=== PATIENT | female | born 1985 | race Caucasian/White ===

== ENCOUNTER → 2016-07-11 | Outpatient (CLI) | payer OTHER, MEDICAID | LOC: HPND 08:16 | PROVIDERS: ATTEND Obstetrics & Gynecology | DX: O99.322 Drug use complicating pregnancy, second trimester (principal); G35 Multiple sclerosis | CPT/HCPCS: 76811 ==

== ENCOUNTER → 2016-08-23 | Outpatient (CLI) | payer MEDICAID | LOC: HPND 09:43 | PROVIDERS: ATTEND Obstetrics & Gynecology | DX: O35.8XX0 Maternal care for other (suspected) fetal abnormality and damage, not applicable or unspecified (principal); O99.322 Drug use complicating pregnancy, second trimester; O43.192 Other malformation of placenta, second trimester; Z3A.22 22 weeks gestation of pregnancy | CPT/HCPCS: 76816 ==

== ENCOUNTER 2017-07-30 08:04 | Observation (INO) | payer OTHER, MEDICAID ==
[~2017-07-30] VITALS: Ht 165.1 cm; Wt 70.3 kg
[~2017-07-30 08:04] MED LIST: ALPR.5 PO; CYCL10TA PO
[2017-07-30] MEDS ORDERED: SODIUM CHLORID 0.9% 500 ML IV PRN (08:45)
[2017-07-30] MEDS ORDERED: POVIDONE IODINE 5% (ANTISEPSIS KIT) 4 APPLICATIONS EACH NARE PRN (08:45)
[2017-07-30] MEDS ORDERED: CHLORHEXIDINE GLUCONATE 2 % 1 PACK (2 CLOTHS) TOPICAL PRN (08:45)
[2017-07-30] MEDS ORDERED: ceFAZolin 2 GM PREMIX 50 ML IV SCH (08:45)
[2017-07-30] MEDS ORDERED: METOPROLOL TARTRATE 25 MG TAB PO PRN (08:45)
[2017-07-30] MEDS ORDERED: LACTATED RINGER'S 1000 ML IV PRN (08:45)
[2017-07-30] MEDS ORDERED: ACETAMINOPHEN 1000 MG/100 ML 100 ML IV SCH (08:45)
[2017-07-30] MEDS ORDERED: MIDAZOLAM HCL 2 MG/2 ML VIAL ONE ×2 (10:15→15:46)
[2017-07-30] MEDS ORDERED: APREPITANT 40 MG CAP ONE (10:15)
[2017-07-30] MEDS ORDERED: FAMOTIDINE 20 MG/2 ML VIAL ONE ×2 (10:16→10:31)
[2017-07-30] MEDS ORDERED: BUPIVACAINE LIPOSOME PF 1.3% 20 ML VIAL ONE ×2 (10:38→13:56)
[2017-07-30] MEDS ORDERED: APREPITANT 40 MG CAP PO ONE (11:30)
[2017-07-30] MEDS ORDERED: MIDAZOLAM HCL 2 MG/2 ML VIAL IV ONE (11:30)
[2017-07-30] MEDS ORDERED: FAMOTIDINE 20 MG/2 ML VIAL IV ONE (11:30)
[2017-07-30] MEDS ORDERED: ACETAMINOPHEN 1000 MG/100 ML 0 ML IV ONE (11:53)
[2017-07-30] MEDS ORDERED: BUPIVACAINE/EPINEPHRINE 0.25% 50 ML VIAL ONE (11:59)
[2017-07-30] MEDS ORDERED: SODIUM CHLORIDE 0.9% 20 ML VIAL ONE (15:04)
--- NOTE | 2017-07-30 15:27 | PD.OP ---
cc: Luke Carranza MD Operative Report Date of Surgery: Jul 30, 2017 Preoperative Diagnosis: (1) Ventral incisional hernia (2) Umbilical hernia Postoperative Diagnosis: (1) Ventral incisional hernia (2) Umbilical hernia Procedure: Robot-assisted repair of ventral incisional hernia with mesh and primary repair of umbilical hernia Anesthesia: General Surgeon: Luke Carranza Table Lever Operator(s): Samantha LEMON Operation and Findings: EBL: 10 cc Operative findings: Patient had a fairly large incisional hernia at the site of the Pfannenstiel incision. Fascial defect approximately 6 x 6 cm. The rectus muscle was still in the midline on the left. Umbilical hernia approximately 1 cm closed primarily intracorporeally. Procedure in detail: The patient was taken to the operating room placed in supine position. General endotracheal anesthesia was induced. The abdomen is prepped and draped in usual sterile fashion and surgical timeout was performed to verify correct patient procedure and site. Appropriate preoperative antibiotics were administered. Local anesthetic was injected in the skin and subcutaneous tissue in the left upper quadrant and an 8 mm incision created. The Optiview trocar was used to directly enter the abdomen with the laparoscope in place. The abdomen was insufflated to 15 mmHg of CO2 gas which the patient tolerated well. 12 mm trocar was placed in the epigastrium and another 8 mm robotic trocar in the right upper quadrant. The left upper abdominal Optiview trocar was changed to the 8 mm robotic trocar. The patient was placed in mild Trendelenburg position. At this point, the da Santhosh robot was docked with the Prograsp and kamron in arm 1 and 2. Attention was turned to the lower abdomen. The hernia defect was obvious and measures approximately 6 x 6 cm. The left rectus muscle remain in the midline, however, the fascia was not in the midline. The hernia sac was reduced. The fascia was closed with #[address] 6 x 10" mesh was cut to approximately 10 x 15 cm. The mesh was oriented vertically and sutured in place inferiorly at the pubis and around the edge of the mesh using strata fix 3-0 PDS. There is wide coverage of the defect. Next the umbilical hernia was identified and was proximally 1 cm in diameter. The preperitoneal fatty tissue in the hernia sac were dissected circumferentially around the fascial defect. The defect was closed with number 1V lock suture running while grasping dermis of the umbilical skin as well. This point trochars were removed. Fascia of the 12 mm site was closed with 0 Vicryl suture. Skin closed subcuticular 4-0 Monocryl and Dermabond. The patient tolerated the procedure well was and was extubated and taken to PACU in stable condition. Luke Carranza MD Jul 30, 2017 15:27
[2017-07-30] MEDS ORDERED: DO NOT ADM ANY ANTICOAGULANT DRUGS PRN (15:40)
[2017-07-30] MEDS ORDERED: *morphine SULFATE 4 MG/ML PERIprocedure ONLY ONE ×2 (15:49→16:02)
[2017-07-30] MEDS ORDERED: SODIUM CHLORIDE 0.9% FLUSH 10 ML FLUSH IV FLUSH PRN (16:00)
[2017-07-30] MEDS ORDERED: NALOXONE HCL 0.4 MG/ML AMP IV PUSH PRN (16:00)
[2017-07-30] MEDS: KETOROLAC TROMETHAMINE 30 MG/ML (IVP) VIAL IV PUSH SCH ×2 (16:00→21:08)
[2017-07-30] MEDS: LACTATED RINGER'S 1000 ML INJ 1,000 ML IV SCH (16:00)
[2017-07-30] MEDS ORDERED: diphenhydrAMINE HCL 25 MG CAP PO PRN (16:00)
[2017-07-30] MEDS ORDERED: ACETAMINOPHEN/HYDROcodone 325 MG/10 MG TAB PO PRN (16:00)
[2017-07-30] MEDS ORDERED: Post-op Orders (for Pharmacy) XX ONE (16:00)
[2017-07-30] MEDS ORDERED: ACETAMINOPHEN/HYDROcodone 325 MG/5 MG TAB PO PRN (16:00)
[2017-07-30 20:00] VITALS: BP 117/79; PULSE 65; RESP 18; TEMP 98; O2SAT 99
[2017-07-30] MEDS ORDERED: ZOLPIDEM TARTRATE 5 MG TAB PO PRN (21:00)
[2017-07-30] MEDS: SODIUM CHLORIDE 0.9% FLUSH 10 ML FLUSH IV FLUSH SCH (21:00)
[2017-07-30] MEDS: ACETAMINOPHEN 1000 MG/100 ML 100 ML IV SCH (21:08)
[2017-07-30] MEDS: ALPRAZolam 0.5 MG TAB PO PRN (21:48)
[2017-07-31] VITALS: BP 115/55; PULSE 76; RESP 18; O2SAT 98
[2017-07-31] MEDS: ACETAMINOPHEN 1000 MG/100 ML 100 ML IV SCH ×3 (00:54→12:13)
[2017-07-31] MEDS: LACTATED RINGER'S 1000 ML INJ 1,000 ML IV SCH ×3 (00:56→10:06)
[2017-07-31 04:00] VITALS: BP 110/72; PULSE 72; RESP 18; O2SAT 97
[2017-07-31] MEDS: KETOROLAC TROMETHAMINE 30 MG/ML (IVP) VIAL IV PUSH SCH ×2 (05:05→10:00)
[2017-07-31] MEDS: ALPRAZolam 0.5 MG TAB PO PRN (05:18)
[2017-07-31 08:56] VITALS: BP 98/62; PULSE 80; RESP 18; TEMP 98.3
[2017-07-31] MEDS: SODIUM CHLORIDE 0.9% FLUSH 10 ML FLUSH IV FLUSH SCH (10:06)
[2017-07-31 11:32] VITALS: BP 115/71; PULSE 78; RESP 20; TEMP 98.2; O2SAT 100
[2017-07-31] MEDS ORDERED: HYDR-3516 PO (13:39)
[2017-07-31] MEDS ORDERED: KETO10 PO (13:39)
== END 2017-07-31 15:56 | disposition home or self-care (01) ==
LOC: INTOOBSV 08:04 → HSDI 08:04 → N07A 16:43
PROVIDERS: ADMIT Surgery; ATTEND Surgery
DX: K43.2 Incisional hernia without obstruction or gangrene (principal); K42.9 Umbilical hernia without obstruction or gangrene
CPT/HCPCS: 00832; 49652; 49654; 96374; 96376; C1781; C9290; G0378; J0131; J1885; J2250; J2270; J3010; J7120; J8501